=== PATIENT | male | born 1960 | race Caucasian/White ===

== ENCOUNTER → 2019-06-13 | Outpatient (CLI) | payer OTHER ==
--- NOTE | 2019-06-13 12:08 | 2DMMODE ---
[place] [address] 2 D/M-MODE ECHOCARDIOGRAM Name: CATA MOODY Room: [facility]#: [id number] Admission: 06/13/19 Attend Phys: Nila Kohli Discharge: Date of : 64 Date of Service: 06/13/19 1207 Report #: [id number] THIS REPORT FOR: cc: Omar Bowles Robin L. FNP Holkins, John M. MD [facility] ~ APPROVED REPORT Study performed: 06/13/2019 09:38:58 EXAM: Comprehensive 2D, Doppler, and color-flow Echocardiogram Patient Location: Out-Patient Status: routine BSA: 2.07 HR: 66 bpm BP: 143/85 mmHg Rhythm: NSR Other Information Study Quality: Good Indications Dyspnea Chest Pain 2D Dimensions IVSd: 10.40 (7-11mm) LVOT Diam: 22.47 (18-24mm) LVDd: 46.58 mm PWd: 10.11 (7-11mm) Ascending Ao: 35.90 (22-36mm) LVDs: 23.88 (25-40mm) Aortic Root: 41.45 mm Volumes Left Atrial Volume (Systole) LA ESV Index: 15.50 mL/m2 Aortic Valve AoV Peak Parker.: 1.06 m/s AO Peak Gr.: 4.47 mmHg LVOT Max P.82 mmHg AO Mean Gr.: 2.25 mmHg LVOT Mean P.47 mmHg LVOT Max V: 0.98 m/s AO V2 VTI: 22.03 cm LVOT Mean V: 0.54 m/s NICOLÁS (VTI): 3.60 cm2 LVOT V1 VTI: 19.98 [place] [address] 2 D/M-MODE ECHOCARDIOGRAM Name: CATA MOODY Room: [facility]#: [id number] Admission: 06/13/19 Attend Phys: Nila Kohli Discharge: Date of : 64 Date of Service: 06/13/19 1207 Report #: [id number] Mitral Valve E/A Ratio: 1.09 MV Decel. Time: 160.53 ms MV E Max Parker.: 0.68 m/s MV PHT: 46.55 ms MVA (PHT): 4.73 cm2 TDI E/Lateral E': 6.80 E/Medial E': 6.18 Medial E' Parker.: 0.11 m/s Lateral E' Parker.: 0.10 m/s Pulmonary Valve PV Peak Parker.: 0.93 m/s PV Peak Gr.: 3.43 mmHg Left Ventricle The left ventricle is normal size. There is normal LV segmental wall motion. There is normal left ventricular wall thickness. Left ventricular systolic function is normal. The left ventricular ejection fraction is within the normal range. LVEF is 60-65%. The left ventricular diastolic function is normal. Right Ventricle The right ventricle is normal size. The right ventricular systolic function is normal. Atria The left atrium size is normal. The right atrium size is normal. Aortic Valve The aortic valve is normal in structure. No aortic regurgitation is present. There is no aortic valvular stenosis. Mitral Valve The mitral valve is normal in structure. Trace mitral regurgitation. No evidence of mitral valve stenosis. Tricuspid Valve The tricuspid valve is normal in structure. Trace tricuspid regurgitation. Pulmonic Valve The pulmonary valve is normal in structure. [place] [address] 2 D/M-MODE ECHOCARDIOGRAM Name: CATA MOODY Room: [facility]#: [id number] Admission: 06/13/19 Attend Phys: Nila Kohli Discharge: Date of : 64 Date of Service: 06/13/19 1207 Report #: [id number] Great Vessels The aortic root is normal in size. IVC is normal in size and collapses >50% with inspiration. Pericardium There is no pericardial effusion. <Conclusion> The left ventricle is normal size. There is normal left ventricular wall thickness. Left ventricular systolic function is normal. The left ventricular ejection fraction is within the normal range. LVEF is 60-65%. The left ventricular diastolic function is normal. The right ventricle is normal size. The left atrium size is normal. The aortic valve is normal in structure. The mitral valve is normal in structure. Trace mitral regurgitation. The tricuspid valve is normal in structure. IVC is normal in size and collapses >50% with inspiration. There is no pericardial effusion. There is normal LV segmental wall motion. <ELECTRONICALLY SIGNED> By: Pop Ramos MD, FACC 06/13/19 1207 1207 1207 Pop Ramos MD, FACC /INF
--- NOTE | 2019-06-13 17:06 | CARDNUC ---
[place] [address] CARDIAC NUCLEAR IMAGING REPORT Name: CATA MOODY Room: [facility]#: [id number] Admission: 06/13/19 Attend Phys: Nila Kohli Discharge: Date of : 64 Date of Service: 06/13/19 1705 Report #: [id number] THIS REPORT FOR: cc: Omar Bowles Robin L. FNP Liston, Michael J. MD [facility] ~ APPROVED REPORT Imaging Protocol: Stress Tc-99m/Rest Tc-99m 2 days Study performed: 06/13/2019 09:37:02 Indication: Chest pain, Dyspnea Patient Location: Out-Patient Stress Tech: Vianey Guardado Stress Nurse: Katie Ruth RN Ht: 5 ft 10 in Wt: 195 lbs BSA: 2.07 m2 BMI: 27.97 Medical History Medical History: HTN, Hyperlipidemia Medications: atorvastatin, losartan Allergies: No known drug allergies Cardiac Risk Factors: Age, HTN, Hyperlipidemia, FHX of CAD Exercise History: Indeterminate Resting Data Rest SPECT myocardial perfusion imaging was performed in supine position 30 minutes following the intravenous injection of 10.2 mCi of Tc-99m Sestamibi. Time of rest injection: 08:00 The images were gated to evaluate regional wall motion and calculate left ventricular ejection fraction. Administration Route: IV Administration Site: Right AC Pharmacologic Stress Pharmacologic stress test was performed by injecting Regadenoson 0.4 mg IV push over 10-15 seconds immediately followed by the intravenous injection of 35.1 mCi of Tc-99m Sestamibi. Time of stress injection: 09:45 Administration Route: IV Administration Site: Right AC Heart Rate at time of stress injection: [address] [place] [address] CARDIAC NUCLEAR IMAGING REPORT Name: CATA MOODY Room: [facility]#: [id number] Admission: 06/13/19 Attend Phys: Nila Kohli Discharge: Date of : 64 Date of Service: 06/13/19 1705 Report #: [id number] Gated Stress SPECT was performed 45 minutes after stress injection. The images were gated to evaluate regional wall motion and calculate left ventricular ejection fraction. Prone imaging was performed. Stress Test Details Stress Test: Pharmacologic stress testing performed using 0.4 mg of regadenoson per 5 mL given IV over 10 seconds. Reason for pharmacologic stress test: physical limitation. HR Max Heart Rate (APMHR): 163 bpm Resting HR: 68 bpm Target HR (85% APMHR): 138 bpm Max HR Achieved: 115 bpm % of APMHR: 70 Recovery HR: 81 bpm BP Resting BP: 119/82 mmHg Max BP: 183/75 mmHg Recovery BP: 143/85 mmHg ECG Resting ECG: Sinus Rhythm Stress ECG: Sinus Rhythm ST Change: None Arrhythmia: None Recovery ECG: Sinus Rhythm Recovery ST Change: None Recovery Arrhythmia: None Clinical Reason for Termination: Completed protocol Exercise duration: 0 min sec Exercise capacity: 1 METs The patient tolerated Lexiscan infusion without significant cardiac symptoms. Nurse Comments pt too unsteady on feet to walk treadmill Stress ECG Conclusion Baseline 12-lead EKG show sinus rhythm without significant ST segment or T wave abnormality. EKGs obtained during and post Lexiscan infusion show sinus rhythm with no significant ST or T wave changes when compared to baseline. There were no significant stress[place] [address] CARDIAC NUCLEAR IMAGING REPORT Name: FRANSISCOCATA Johan Room: [facility]#: [id number] Admission: 06/13/19 Attend Phys: Nila Kohli Discharge: Date of : 64 Date of Service: 06/13/19 1705 Report #: [id number] Study Quality Study: Good Artifact: Mild Diaphragmatic artifact Study Data At rest, the left ventricular ejection fraction was 70%.. Post stress, the left ventricular ejection was 72%.. TID = 1.02. Perfusion Perfusion images obtained at rest and post Lexiscan stress in the supine position show mild photopenia involving the inferior wall that resolves with post stress prone imaging suggesting diaphragmatic attenuation artifact. No other significant fixed or reversible defects were identified. Wall Motion Normal left ventricular wall motion. Nuclear Conclusion ECG Findings: negative for ischemia Clinical Findings: negative for ischemia Nuclear Findings: negative for ischemia Exercise Capacity: not assessed Left Ventricular Function: normal Risk Study: low Myocardial perfusion images show no defect to suggest infarct or ischemia. Left ventricular systolic function is normal on gated studies. This is a low risk study. <Conclusion> Baseline 12-lead EKG show sinus rhythm without significant ST segment or T wave abnormality. EKGs obtained during and post Lexiscan infusion show sinus rhythm with no significant ST or T wave changes when compared to baseline. There were no significant stress-induced arrhythmias. <ELECTRONICALLY SIGNED> By: Raffi Weber MD, FACC 06/13/19 1705 04 04 Raffi Weber MD, FACC /INF
== END ==
LOC: M.NUC 06-04 08:21
DX: I08.8 Other rheumatic multiple valve diseases (principal); I10 Essential (primary) hypertension